=== PATIENT | male | born 2000 | race Caucasian/White ===

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

== ENCOUNTER 2020-04-22 17:05 | Emergency (ER) | payer OTHER ==
[2020-04-22 17:09] VITALS: BP 141/89; PULSE 59
[2020-04-22] MEDS ORDERED: Famotidine 20 MG/2 ML SDV IVPUSH ONE ×2 (17:12→17:19)
[2020-04-22] MEDS ORDERED: methylPREDNISolone Sodium Succinate 125 MG/2 ML SDV IVPUSH ONE (17:12)
[2020-04-22] MEDS ORDERED: diphenhydrAMINE 50 MG/ML SDV IVPUSH ONE (17:13)
--- NOTE | 2020-04-22 18:03 | EDM.PDOC ---
ED HPI GENERAL MEDICAL PROBLEM - General Chief Complaint: Allergic Reaction Stated Complaint: EYE SWELLING Time Seen by Provider: 04/22/20 17:10 Source of Information: Reports: Patient History Limitations: Reports: No Limitations - History of Present Illness INITIAL COMMENTS - FREE TEXT/NARRATIVE: Patient is a 19-year-old male presenting to the emergency department with complaints of allergic reaction. He states he was at football practice prior to coming to the ER when he began itching and had swelling in his mouth and tongue. He is unsure what he is allergic to. He states his dad told him that he thought he had a bite on his back, however he does not think he got bit by anything. He took a single Benadryl 25 mg prior to coming to the ER. States that he feels "a little "short of breath. Denies any nausea or vomiting. - Related Data Allergies Allergy/AdvReac Type Severity Reaction Status Date / Time Penicillins Allergy Rash Verified 01/27/17 23:30 Home Meds: Home Meds Oseltamivir [Tamiflu] 75 mg PO BID #10 cap 08/17/17 [Rx] EPINEPHrine [Epipen] 0.3 mg .XX ASDIRECTED PRN #1 pen 04/22/20 [Rx] predniSONE [Prednisone] 20 mg PO ASDIRECTED #15 tablet 04/22/20 [Rx] Past Medical History - Past Health History Medical/Surgical History: Denies Medical/Surgical History - Infectious Disease History Infectious Disease History: Reports: Novel Coronavirus - Past Surgical History HEENT Surgical History: Reports: Tonsillectomy Male Surgical History: Reports: Circumcision Musculoskeletal Surgical History: Reports: Arthroscopic Knee, Shoulder Surgery Social & Family History - Family History Family Medical History: Noncontributory Cardiac: Reports: [place] - Tobacco Use Tobacco Use Status *Q: Never Tobacco User - Caffeine Use Caffeine Use: Reports: None - Recreational Drug Use Recreational Drug Use: No - Living Situation & Occupation Living situation: Reports: with Family Occupation: Student (Going into 12th grade) ED ROS ALLERGIC REACTION - Review of Systems Review Of Systems: See Below Constitutional: Reports: No Symptoms. Denies: Fever, Chills, Weakness HEENT: Reports: No Symptoms Respiratory: Reports: Shortness of Breath. Denies: Wheezing, Cough Cardiovascular: Reports: No Symptoms Endocrine: Reports: No Symptoms GI/Abdominal: Reports: No Symptoms. Denies: Abdominal Pain, Diarrhea, Nausea, Vomiting : Reports: No Symptoms Musculoskeletal: Reports: No Symptoms Skin: Reports: Pruritis, Rash Neurological: Reports: No Symptoms. Denies: Dizziness, Headache Psychiatric: Reports: No Symptoms Hematologic/Lymphatic: Reports: No Symptoms Immunologic: Reports: No Symptoms ED EXAM GENERAL NO PERIP PULSE - Physical Exam Exam: See Below General Appearance: Alert, WD/WN, No Apparent Distress Eye Exam: Bilateral Eye: PERRL, Other (edema to bilateral eyelids) Throat/Mouth: Normal Inspection, Normal Lips, Normal Teeth, Normal Gums, Normal Oropharynx, Normal Voice, No Airway Compromise Respiratory/Chest: No Respiratory Distress, Lungs Clear, Normal Breath Sounds, No Accessory Muscle Use, Chest Non-Tender Cardiovascular: Normal Peripheral Pulses, Regular Rate, Rhythm, No Edema, No Gallop, No JVD, No Murmur, No Rub Neurological: Alert, Oriented, CN II-XII Intact, Normal Cognition, Normal Gait, Normal Reflexes, No Motor/Sensory Deficits Skin Exam: Warm, Dry, Intact, Normal Color, Rash (faint macular rash to upper back. No rash visualized to chest, arms, or legs.) Course - Vital Signs Last Recorded V/S: Last Vital Signs Temp 98.5 F 04/22/20 17:05 Pulse 59 L 04/22/20 17:05 Resp 20 04/22/20 17:05 BP 141/89 H 04/22/20 17:05 Pulse Ox 98 04/22/20 17:05 - Orders/Labs/Meds Meds: Medications Discontinued Medications Generic Name Dose Route Start Last Admin Trade Name Ze PRN Reason Stop Dose Admin Diphenhydramine HCl 50 mg 04/22/20 17:13 04/22/20 17:20 Benadryl IVPUSH 04/22/20 17:14 50 mg ONETIME ONE Administration Famotidine 20 mg 04/22/20 17:12 04/22/20 17:35 Pepcid IVPUSH 04/22/20 17:13 Not Given ONETIME ONE Famotidine 40 mg 04/22/20 17:19 04/22/20 17:27 Pepcid IVPUSH 04/22/20 17:20 40 mg ONETIME ONE Administration Methylprednisolone Sodium Succinate 125 mg 04/22/20 17:12 04/22/20 17:18 Solu-Medrol IVPUSH 04/22/20 17:13 125 mg ONETIME ONE Administration - Re-Assessments/Exams Free Text/Narrative Re-Assessment/Exam: 04/22/20 20:04 Patient symptoms have completely resolved after the Benadryl, Pepcid, and Solu- Medrol. I will send a prescription for prednisone as well as an EpiPen to have as needed. Recommend Pepcid and Benadryl for the next few days. Discharge instructions as documented. Departure - Departure Time of Disposition: 20:05 Disposition: Home, Self-Care 01 Condition: Good Clinical Impression: Allergic reaction Qualifiers: Encounter type: initial encounter Qualified Code(s): T78.40XA - Allergy, unspecified, initial encounter - Discharge Information *PRESCRIPTION DRUG MONITORING PROGRAM REVIEWED*: No *COPY OF PRESCRIPTION DRUG MONITORING REPORT IN PATIENT JULIAN: No Prescriptions: EPINEPHrine [Epipen] 0.3 mg .XX ASDIRECTED PRN #1 pen PRN Reason: throat tightness/allergic predniSONE [Prednisone] 20 mg PO ASDIRECTED #15 tablet Instructions: Allergies, Adult, [id number] Referrals: PCP,None [Primary Care Provider] - Forms: ED Department Discharge Additional Instructions: You were seen in the emergency department this evening for an acute allergic reaction while at [facility]. While in the ER, you received Solu-Medrol which is a steroid, Pepcid, and Benadryl through your IV. This resolved your symptoms. A prescription for prednisone which is a steroid as well as EpiPen has been sent to [facility] in [place]. Take the prednisone as prescribed. Recommend that you take over the counter Pepcid twice daily for the next 5 days and Benadryl 50 mg every 4 hours as needed for return of itching or rash. Use the EpiPen if you should experience an allergic reaction in the future, however it is important that you come to the emergency department immediately following using this. Recommend that you follow-up with your primary care provider to discuss referral to an design coordinator. Return to the ER for any new or worsening symptoms of concern. Sepsis Event Note (ED) - Evaluation Sepsis Screening Result: No Definite Risk - Focused Exam Vital Signs: Vital Signs Temp Pulse Resp BP Pulse Ox 04/22/20 17:05 98.5 F 59 L 20 141/89 H 98
== END 2020-04-22 20:22 | disposition home or self-care (01) ==
LOC: JD.ED 17:05
DX: T78.40XA Allergy, unspecified, initial encounter (principal); Z88.0 Allergy status to penicillin
CPT/HCPCS: 96374; 96375; 99284; J1200; J2930; J3490; 99283

== ENCOUNTER 2020-12-27 13:08 | Emergency (ER) | payer OTHER ==
[2020-12-27] MEDS ORDERED: diphenhydrAMINE 50 MG/ML SDV IVPUSH ONE (13:22)
[2020-12-27] MEDS ORDERED: Sodium Chloride 0.9% 10 ML Syringe FLUSH PRN (13:22)
[2020-12-27] MEDS ORDERED: methylPREDNISolone Sodium Succinate 125 MG/2 ML SDV IVPUSH ONE (13:22)
[2020-12-27] MEDS ORDERED: Famotidine 20 MG/2 ML SDV IVPUSH ONE (13:23)
[2020-12-27] MEDS ORDERED: Ondansetron 4 MG/2 ML SDV IVPUSH ONE (13:25)
--- NOTE | 2020-12-27 13:43 | EDM.PDOC ---
ED HPI GENERAL MEDICAL PROBLEM - General Chief Complaint: Allergic Reaction Stated Complaint: ALLERGIC REACTION Time Seen by Provider: 12/27/20 13:17 Source of Information: Reports: Patient, Family History Limitations: Reports: No Limitations - History of Present Illness INITIAL COMMENTS - FREE TEXT/NARRATIVE: The patient presents with an allergic reaction. The patient was working out and he developed tongue swelling, chest tightness, and rash. He took preworkout before he started lifting. He also has nausea and vomiting. This has been going on for awhile and he cannot figure out what is causing it. He does not think it is the preworkout. He has been taking that for awhile. He has no new medications. He is wondering if chicken he ate last night did it. He cannot think of any other allergens. Onset: Gradual Duration: Minutes: Severity: Severe Improves with: Reports: None Worsens with: Reports: None Associated Symptoms: Reports: Chest Pain, Nausea/Vomiting, Rash, Shortness of Breath. Denies: Cough, Fever/Chills, Headaches - Related Data Allergies Allergy/AdvReac Type Severity Reaction Status Date / Time Penicillins Allergy Rash Verified 12/27/20 13:18 Home Meds: Home Meds EPINEPHrine [Epipen] 0.3 mg IM ASDIRECTED PRN #1 pen 12/27/20 [Rx] predniSONE [Prednisone] 40 mg PO DAILY #10 tablet 12/27/20 [Rx] Past Medical History - Past Health History Medical/Surgical History: Denies Medical/Surgical History - Infectious Disease History Infectious Disease History: Reports: Novel Coronavirus - Past Surgical History HEENT Surgical History: Reports: Tonsillectomy Male Surgical History: Reports: Circumcision Musculoskeletal Surgical History: Reports: Arthroscopic Knee, Shoulder Surgery Other Musculoskeletal Surgeries/Procedures:: left Social & Family History - Family History Family Medical History: No Pertinent Family History Cardiac: Reports: GA - Tobacco Use Tobacco Use Status *Q: Never Tobacco User Second Hand Smoke Exposure: No - Caffeine Use Caffeine Use: Reports: None - Recreational Drug Use Recreational Drug Use: No - Living Situation & Occupation Living situation: Reports: with Family Occupation: Student (Going into 12th grade) ED ROS ALLERGIC REACTION - Review of Systems Review Of Systems: See Below Constitutional: Reports: No Symptoms HEENT: Reports: Other (tongue swelling) Respiratory: Reports: Shortness of Breath Cardiovascular: Reports: No Symptoms Endocrine: Reports: No Symptoms GI/Abdominal: Reports: Mucous in Stool, Nausea, Vomiting. Denies: Abdominal Pain Musculoskeletal: Reports: No Symptoms Skin: Reports: Rash ED EXAM GENERAL NO PERIP PULSE - Physical Exam Exam: See Below Exam Limited By: No Limitations General Appearance: Alert, No Apparent Distress Ears: Normal External Exam Nose: Normal Inspection Head: Atraumatic, Normocephalic Neck: Normal Inspection Respiratory/Chest: No Respiratory Distress, Lungs Clear, Normal Breath Sounds Cardiovascular: Regular Rate, Rhythm, No Edema, No Murmur GI/Abdominal: Soft, Non-Tender, No Organomegaly, No Mass Skin Exam: Other (flushed) Course - Vital Signs Last Recorded V/S: Last Vital Signs Temp 98.6 F 12/27/20 13:16 Pulse 101 H 12/27/20 13:16 Resp 25 H 12/27/20 13:16 BP 176/97 H 12/27/20 13:16 Pulse Ox 98 12/27/20 13:16 - Orders/Labs/Meds Orders: Active Orders 24 hr Category Date Time Status Peripheral IV Care [RC] . DIRECTED Care 12/27/20 13:22 Active Sodium Chloride 0.9% [Saline Flush] Med 12/27/20 13:22 Active 10 ml FLUSH ASDIRECTED PRN Peripheral IV Insertion Adult [OM.PC] Routine Oth 12/27/20 13:22 Ordered Medication Orders Sodium Chloride (Sodium Chloride 0.9% 10 Ml Syringe) 10 ml FLUSH ASDIRECTED PRN PRN Reason: Keep Vein Open Last Admin: 12/27/20 13:32 Dose: 10 ml Documented by: KUMAR Meds: Medications Generic Name Dose Route Start Last Admin Trade Name Freq PRN Reason Stop Dose Admin Sodium Chloride 10 ml 12/27/20 13:22 12/27/20 13:32 Sodium Chloride 0.9% 10 Ml Syringe FLUSH 10 ml ASDIRECTED PRN Administration Keep Vein Open Discontinued Medications Generic Name Dose Route Start Last Admin Trade Name Freq PRN Reason Stop Dose Admin Diphenhydramine HCl 50 mg 12/27/20 13:22 12/27/20 13:31 Diphenhydramine 50 Mg/Ml Sdv IVPUSH 12/27/20 13:23 50 mg ONETIME ONE Administration Famotidine 20 mg 12/27/20 13:23 12/27/20 13:31 Famotidine 20 Mg/2 Ml Sdv IVPUSH 12/27/20 13:24 20 mg ONETIME ONE Administration Methylprednisolone Sodium Succinate 125 mg 12/27/20 13:22 12/27/20 13:31 Methylprednisolone Sodium Succinate 125 Mg/2 Ml Sdv IVPUSH 12/27/20 13:23 125 mg ONETIME ONE Administration Ondansetron HCl 4 mg 12/27/20 13:25 12/27/20 13:31 Ondansetron 4 Mg/2 Ml Sdv IVPUSH 12/27/20 13:26 4 mg ONETIME ONE Administration - Re-Assessments/Exams Free Text/Narrative Re-Assessment/Exam: 12/27/20 13:44 I ordered an IV saline lock, solu-medrol 125mg IV, pepcid 20mg IV, benadryl 50mg IV, and zofran 4mg IV. 12/27/20 14:32 He feels much better. I was looking at some preworkout on line and some have niacin. He says he avoids them. I am not sure what caused this. I will get him on some prednisone and an epipen. I will have him follow up with an offender employment specialist. Departure - Departure Time of Disposition: 14:35 Disposition: Home, Self-Care 01 Condition: Good Clinical Impression: Allergic reaction Qualifiers: Encounter type: initial encounter Qualified Code(s): T78.40XA - Allergy, unspecified, initial encounter - Discharge Information *PRESCRIPTION DRUG MONITORING PROGRAM REVIEWED*: Not Applicable *COPY OF PRESCRIPTION DRUG MONITORING REPORT IN PATIENT JULIAN: Not Applicable Prescriptions: predniSONE [Prednisone] 40 mg PO DAILY #10 tablet Referrals: PCP,None [Primary Care Provider] - Ekta Romano MD [Physician] - 1 Week Forms: ED Department Discharge Additional Instructions: Take the prednisone 40mg daily for 5 days. Take pepcid 20mg daily for 1 week. Take benadryl 50mg every 6 hours as needed for allergy symptoms. Use the epipen as needed for any severe allergy symptoms or anaphylactic reactions. Anaphylactic reactions are a sever reaction. You throat can swell, you can have trouble breathing and your blood pressure can drop. Follow up with your provider or Dr Romano in our clinic or with an licensed club manager in [place]. [facility] has an allergy clinic. Please return if you are worse. Sepsis Event Note (ED) - Evaluation Sepsis Screening Result: No Definite Risk - Focused Exam Vital Signs: Vital Signs Temp Pulse Resp BP Pulse Ox 12/27/20 13:16 98.6 F 101 H 25 H 176/97 H 98 - My Orders Last 24 Hours: My Active Orders 12/27/20 13:22 Peripheral IV Care [RC] . DIRECTED Sodium Chloride 0.9% [Saline Flush] 10 ml FLUSH ASDIRECTED PRN Peripheral IV Insertion Adult [OM.PC] Routine - Assessment/Plan Last 24 Hours: My Active Orders 12/27/20 13:22 Peripheral IV Care [RC] . DIRECTED Sodium Chloride 0.9% [Saline Flush] 10 ml FLUSH ASDIRECTED PRN Peripheral IV Insertion Adult [OM.PC] Routine
[2020-12-27 14:49] VITALS: BP 124/73; PULSE 52
== END 2020-12-27 14:47 | disposition home or self-care (01) ==
LOC: JD.ED 13:08
DX: T78.40XA Allergy, unspecified, initial encounter (principal); Z88.0 Allergy status to penicillin; Z86.16 Personal history of COVID-19
CPT/HCPCS: 96374; 96375; 99283; J1200; J2405; J2930; J3490

== ENCOUNTER 2021-08-28 18:56 | Emergency (ER) | payer OTHER ==
[2021-08-28 19:12] VITALS: BP 124/109; PULSE 88
[2021-08-28] MEDS ORDERED: Sodium Chloride 0.9% 10 ML Syringe FLUSH PRN (19:12)
[2021-08-28] MEDS ORDERED: Metoclopramide 10 MG/2 ML SDV IVPUSH ONE (19:12)
[2021-08-28] MEDS ORDERED: Glucagon,Human Recombinant 1 MG Vial IVPUSH ONE (19:12)
[2021-08-28] MEDS ORDERED: fentaNYL 100 MCG/2 ML SDV IVPUSH ONE (19:12)
== END 2021-08-28 20:30 | disposition home or self-care (01) ==
LOC: JD.ED 18:56
DX: T18.128A Food in esophagus causing other injury, initial encounter (principal); Z91.012 Allergy to eggs; Z88.0 Allergy status to penicillin; Z91.018 Allergy to other foods; Z86.16 Personal history of COVID-19
CPT/HCPCS: 96374; 96375; 99283; J1610; J2765; J3010

== ENCOUNTER 2022-02-08 19:43 | Emergency (ER) | payer OTHER | END 2022-02-08 19:49 | disposition left against medical advice (07) | LOC: JD.ED 19:43 | DX: Z53.21 Procedure and treatment not carried out due to patient leaving prior to being seen by health care provider (principal) ==

== ENCOUNTER 2023-07-08 20:48 | Emergency (ER) | payer OTHER | END 2023-07-08 20:49 | disposition left against medical advice (07) | LOC: JD.ED 20:48 | DX: Z53.21 Procedure and treatment not carried out due to patient leaving prior to being seen by health care provider (principal) ==

== ENCOUNTER 2024-04-28 14:01 | Emergency (ER) | payer OTHER ==
[2024-04-28 14:07] VITALS: BP 166/108; PULSE 81
[2024-04-28] MEDS: Metoclopramide 10 MG/2 ML SDV IVPUSH ONE (14:31)
[2024-04-28] MEDS: Glucagon,Human Recombinant 1 MG Vial IVPUSH ONE (14:31)
[2024-04-28] MEDS: Ondansetron 4 MG/2 ML SDV IVPUSH ONE (15:13)
== END 2024-04-28 16:05 | disposition home or self-care (01) ==
LOC: JD.ED 14:01
DX: K56.49 Other impaction of intestine (principal); Z86.16 Personal history of COVID-19; Z90.89 Acquired absence of other organs; Z91.012 Allergy to eggs; Z88.0 Allergy status to penicillin; Z91.018 Allergy to other foods
CPT/HCPCS: 96374; 96375; 99283; J1610; J2405; J2765

== ENCOUNTER 2025-03-17 19:35 | Emergency (ER) | payer OTHER ==
[2025-03-17] MEDS: Sodium Chloride 0.9% 10 ML Syringe FLUSH PRN (20:08)
[2025-03-17 21:24] VITALS: BP 141/88; PULSE 77
== END 2025-03-17 21:15 | disposition home or self-care (01) ==
LOC: JD.ED 19:35
DX: T18.128A Food in esophagus causing other injury, initial encounter (principal); Z86.16 Personal history of COVID-19; Z88.0 Allergy status to penicillin; Z91.012 Allergy to eggs; Z91.018 Allergy to other foods; Z79.899 Other long term (current) drug therapy
CPT/HCPCS: 96374; 99283; J1610; 99284